=== PATIENT | female | born 1985 ===

== ENCOUNTER 2022-05-27 13:00 | Outpatient (RCR) | payer OTHER, SELFPAY | END 2022-05-28 15:09 | disposition home or self-care (01) | LOC: HO.PT 13:00 | PROVIDERS: PCP Nurse Practitioner Family; Visit Provider Nurse Practitioner Women's Health | DX: N39.3 Stress incontinence (female) (male) (principal) | CPT/HCPCS: 97110; 97112; 97140; 97161 ==